=== PATIENT | female | born 1955 | race Caucasian/White ===

== ENCOUNTER 2018-08-17 10:20 | Inpatient (IN) ==
[2018-08-17] MEDS ORDERED: NS 1,000 ML IV PRN (10:24)
--- NOTE | 2018-08-17 11:01 | Diag Imaging Result Doc PS360 ---
EXAM: CT HEAD W/O CONTRAST HISTORY: cva TECHNIQUE: CT head without contrast COMPARISON: None. FINDINGS: No parenchymal hemorrhage. No epidural or subdural hematoma. No subarachnoid hemorrhage. No mass identified on this noncontrasted exam. No hydrocephalus. No sinus opacification. IMPRESSION: No hemorrhage. Negative brain CT without contrast. This exam was performed using automated exposure control, adjustment of mA or kV according to patient size, and/or use of iterative reconstruction technique. Electronically signed by Jim Boucher 08/17/2018 10:59 AM
--- NOTE | 2018-08-17 11:04 | Diag Imaging Result Doc PS360 ---
EXAM: CHEST-PORTABLE HISTORY: cva TECHNIQUE: Portable chest single view COMPARISON: None. FINDINGS: Poor inspiratory effort. The heart is not enlarged. The vessels are not distended. There are no infiltrates. No effusion identified. IMPRESSION: Negative exam. Electronically signed by Jim Boucher 08/17/2018 11:02 AM
[2018-08-17 11:25] LABS: BASO# 0.03 X1000 (0.0-0.2); BASO% 0.5 % (0.0-0.8); EOS# 0.21 X1000 (0.0-0.7); EOS% 3.7 % (0.0-10.0); HEMATOCRIT 40.2 % (37.0-47.0); HEMOGLOBIN 13.7 g/dL (12.0-16.0); LYMPH# 2.28 X1000 (1.2-3.4); LYMPH% 40.6 % (20.5-51.1); MCH 30.6 PG (27-31); MCHC 34.1 g/dL (33-37); MCV 89.9 FL (81-99); MONO# 0.56 X1000 (0.11-0.59); NEUT# 2.53 X1000 (1.4-6.5); NEUT% 45.2 % (42.2-75.2); PLT 283 X1000 (130-400); RBC 4.47 XMIL (4.2-5.4); RDW 12.5 % (11.5-14.5); WBC 5.61 X1000 (4.8-10.8)
[2018-08-17 11:40] LABS: INR 0.94; PROTIME 13.1 Seconds (11.0-16.0)
[2018-08-17 11:41] LABS: PTT 21.4 Seconds (22.3-41.8)
[2018-08-17 12:10] LABS: UR AMPHETAMINES QUAL NONE DETECTED (NONE DETECT); UR BARBITUATES QUAL NONE DETECTED (NONE DETECT); UR BENZODIAZEPIN QUAL NONE DETECTED (NONE DETECT); UR CANNABINOIDS QUAL NONE DETECTED (NONE DETECT); UR COCAINE QUAL NONE DETECTED (NONE DETECT); UR METHADONE QUAL NONE DETECTED (NONE DETECT); UR METHAMPHETAMINE QUAL NONE DETECTED (NONE DETECT); UR OPIATES QUAL PRESUMPTIVE POSITIVE (NONE DETECT); UR OXYCODONE QUAL NONE DETECTED (NONE DETECT); UR PCP QUAL NONE DETECTED (NONE DETECT); UR PROPOXYPHENE QUAL NONE DETECTED (NONE DETECT); UR TCA QUAL NONE DETECTED (NONE DETECT)
[2018-08-17 12:18] LABS: BILIRUBIN URINE NEGATIVE (NEGATIVE); BLOOD URINE NEGATIVE (NEGATIVE); CLARITY CLEAR (CLEAR); COLOR YELLOW; GLUCOSE URINE NEGATIVE (NEGATIVE); KETONE URINE NEGATIVE (NEGATIVE); LEUKOCYTES URINE NEGATIVE (NEGATIVE); NITRITE URINE NEGATIVE (NEGATIVE); PROTEIN URINE NEGATIVE (NEGATIVE); URINE BACTERIA NEGATIVE /HFP; URINE CAST NONE SEEN /LPF; URINE CRYSTAL NONE SEEN /HPF; URINE EPITHELIAL CELLS >10 /HPF (<10); URINE RBC <10 /HPF (<10); URINE SOURCE CLEAN CATCH; URINE WBC <10 /HPF (<10); URINE YEAST NONE SEEN /HPF; UROBILINOGEN URINE NORMAL
[2018-08-17 12:24] LABS: AGAP 8; ALBUMIN 4.3 g/dL (3.5-5.0); ALKALINE PHOSPHATASE 70 U/L (32-104); BUN 16 mg/dL (8-22); CHLORIDE 105 mmol/L (98-107); COSMO 279; CREATININE 0.6 mg/dL (0.5-0.9); ESTIMATED GFR > 60; GLUCOSE 101 mg/dL (70-104); GOT 14 U/L (10-30); GPT 18 U/L (10-36); POTASSIUM 4.4 mmol/L (3.5-5.1); SODIUM 139 mmol/L (136-145); TCO2 25 mmol/L (25-35); TOTAL PROTEIN 6.6 g/dL (6.3-8.3)
--- NOTE | 2018-08-17 12:24 | EKG Report ---
Test Performed on : 08/17/2018 10:47:47 AM Test Reason : cva Blood Pressure : / mmHG Vent. Rate : 081 BPM Atrial Rate : 081 BPM P-R Int : 176 ms QRS Dur : 086 ms QT Int : 400 ms P-R-T Axes : 032 -25 062 degrees QTc Int : 464 ms Normal sinus rhythm. Normal ECG No previous ECGs available Unconfirmed Result
[2018-08-17 13:57] LABS: FREE T4 1.15 ng/dL (0.93-1.70); TSH 2.71 uIUmL (0.27-4.20)
[2018-08-17] MEDS: NS 1,000 ML IV SCH ×2 (17:59→22:14)
--- NOTE | 2018-08-17 19:45 | HISTORY AND PHYSICAL ---
PRIMARY CARE PROVIDER: Joesph Ramirez DO CHIEF COMPLAINT: Right-sided weakness and slurred speech. HISTORY OF PRESENT ILLNESS: Ms. Anita Rothman is a 62-year-old female with a medical history of obstructive sleep apnea, hypertension, hyperlipidemia, hypothyroidism, GERD and peptic ulcer disease. She states that she went to bed around midnight last night. Boyfriend at the bedside states she was normal at that time. She also claims to have gotten up around 2 a.m. and was normal when she went to go to the bathroom. Then at 9 a.m. she was having trouble sitting up, was dizzy, significantly weaker on the right, difficulties with her speech and her vision. She woke her boyfriend up. He helped her get showered, then they came here. Her initial head CT was negative. Lab work is not too out of range. She does have an elevated total bilirubin. We will get her admitted. She is having some resolving symptoms. She is almost back to her baseline according to her, and on the assessment she seems to be baseline. She is a little bit slow to respond, but she is completely oriented. It does look like there is a little bit of a right facial droop and right eyelid is a little bit lower, but other than that tongue is midline. No difficulties with swallowing. She is essentially intact. We will do routine workup. MRI will not be able to be done until Sunday, as they are out of town on the weekend. PAST MEDICAL HISTORY: 1. Obstructive sleep apnea. 2. Hypertension. 3. Hyperlipidemia. 4. Hypothyroidism. 5. GERD with peptic ulcer disease history. 6. Kidney stones. 7. Nocturnal urinary incontinence, with bladder sling. 8. Hiatal hernia. 9. Osteoarthritis. 10. Chronic back pain. PAST SURGICAL HISTORY: 1. Hysterectomy. 2. Left knee replaced in 01/2018. 3. Bladder sling. 4. Bilateral shoulders. 5. Right hand trigger finger. 6. Falling arches of both feet, with cadaver pounds and muscles lengthened. SOCIAL HISTORY: Quit smoking in 2013, but prior to that she was a 4-vubt-fft-day smoker and had been since the age of 27. She is an occasional drinker, she said maximum is maybe 12 beers in a full year. Denies any illicit drug use. She lives at home with her boyfriend. 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 FAMILY HISTORY: Mother had pulmonary emboli after being diagnosed with ovarian cancer. Father had multiple strokes but they started in his 50s. ALLERGIES: Penicillin. HOME MEDICATIONS: 1. Ibuprofen mixed with Pepcid 1 tablet p.o. twice a day. 2. [place] 1 tablet p.o. as needed. 3. Norvasc 5 mg p.o. daily. 4. Pravastatin 20 mg p.o. daily. 5. Lisinopril 20 mg p.o. daily. 6. Synthroid 25 mcg p.o. daily. 7. Vascepa 1 g p.o. twice daily. REVIEW OF SYSTEMS: Fourteen-point review of systems are complete and all are negative except those mentioned above in HPI. She states when she did have symptoms earlier that she had numbness and tingling in the right hand, but that has resolved. PHYSICAL EXAMINATION: VITAL SIGNS: Temperature 98 degrees, heart rate 76, respiratory rate 18, blood pressure 142/75, O2 saturation 99% on room air. GENERAL: Ms. Anita Rothman is a 62-year-old female. She is in no acute distress. She is able answer questions appropriately. HEENT: There might be a little bit of a right facial droop and right eyelid droop, mostly with resting face, but when she smiles it is not as obvious. Tongue is midline. Pupils are equal and reactive. Extraocular movements are intact. Mucous membranes are moist. She is atraumatic. NECK: Trachea midline. CARDIOVASCULAR: S1, S2. Regular rate and rhythm. No rubs, gallops, murmurs. No lower extremity edema. Dorsalis and radial pulses +2. Negative JVD or carotid bruits. PULMONARY: Clear to auscultate with bilateral breath sounds. No accessory muscle use or work of breathing noted. GASTROINTESTINAL: Soft, nontender, nondistended. Positive bowel sounds x4. EXTREMITIES: Moves all extremities equally. Full range of motion. NEUROLOGIC: A and O x3. Follows commands. Sensory is intact. Verbal responses are a little bit on the slow side, but clear. SKIN: Warm, dry, intact. LABORATORY DATA: White blood cells 5000, hemoglobin 13, hematocrit 40, platelet count 283,000. INR 0.94, PTT is 21.4. Sodium 139, potassium 4.4, BUN 16, creatinine 0.6, glucose 101, calcium 9.0. Bilirubin is 1.40, AST 14, ALT 18. Troponin less than 0.01. Albumin 4.3. TSH 2.71, free T4 is 1.15. Urinalysis negative. Urine drug screen positive for opiates. DIAGNOSTIC DATA: Chest x-ray: Negative exam. Head CT: Negative exam. EKG: Normal sinus rhythm, rate 81, QTc is 464. ASSESSMENT AND PLAN: 1. Transient ischemic attack versus cerebrovascular accident. Given symptoms resolving so quickly, it is appearing to be more of a transient ischemic attack. Apparently she used to take some aspirin when she had her right knee replaced in January. She only took 2 months' worth. She is currently on full-dose aspirin. May consider doing dual therapy, aspirin and Plavix. Her initial head CT was negative. Brain MRI and MRA will be done on Sunday. She has an echocardiogram and carotid ultrasound ordered. We will continue her on statin. 2. Hyperlipidemia. Continue statin. 3. Gastroesophageal reflux disease. We will start on Prilosec because she has history of peptic ulcer disease as well and she is getting started on aspirin. 4. Hypothyroidism. Continue Synthroid. 5. Osteoarthritis with chronic back pain. She will be on [place] 10. Dictated by JESSE Strong for Al Arnett MD cc: JESSE Strong MD
[2018-08-17] MEDS ORDERED: PRAVACHOL PO SCH (21:00)
[2018-08-17] MEDS: NORCO-10 PO PRN (22:11)
[2018-08-17] MEDS: NON-FORMULARY MED PO SCH (22:13)
[2018-08-18 06:17] LABS: BASO# 0.03 X1000 (0.0-0.2); BASO% 0.6 % (0.0-0.8); EOS# 0.21 X1000 (0.0-0.7); HEMATOCRIT 37.6 % (37.0-47.0); HEMOGLOBIN 12.4 g/dL (12.0-16.0); LYMPH# 2.53 X1000 (1.2-3.4); LYMPH% 47.6 % (20.5-51.1); MCH 30.1 PG (27-31); MCV 91.3 FL (81-99); MONO# 0.52 X1000 (0.11-0.59); MONO% 9.8 % (1.7-9.3); MPV 10.7 FL (7.4-10.4); NEUT# 2.02 X1000 (1.4-6.5); PLT 246 X1000 (130-400); RBC 4.12 XMIL (4.2-5.4); RDW 12.2 % (11.5-14.5); WBC 5.31 X1000 (4.8-10.8)
[2018-08-18] MEDS: SYNTHROID PO SCH (06:20)
[2018-08-18] MEDS: PRILOSEC PO SCH (06:20)
[2018-08-18] MEDS: NS 1,000 ML IV SCH ×5 (06:20→21:17)
[2018-08-18 06:29] LABS: HEMOGLOBIN A1C 5.3 % (4.8-6.0)
[2018-08-18 06:36] LABS: AGAP 7; ALBUMIN 3.5 g/dL (3.5-5.0); ALKALINE PHOSPHATASE 60 U/L (32-104); BUN 13 mg/dL (8-22); CALCIUM 8.3 mg/dL (8.8-10.2); CHLORIDE 110 mmol/L (98-107); COSMO 284; CREATININE 0.6 mg/dL (0.5-0.9); ESTIMATED GFR > 60; GLUCOSE 105 mg/dL (70-104); GOT 13 U/L (10-30); GPT 16 U/L (10-36); POTASSIUM 4.1 mmol/L (3.5-5.1); SODIUM 142 mmol/L (136-145); TCO2 25 mmol/L (25-35)
--- NOTE | 2018-08-18 07:38 | Extremity Venous Study ---
EXAM: Carotid Ultrasound - 08/17/2018 HISTORY: cva TECHNIQUE: Carotid flow studies COMPARISON: None. FINDINGS: There is atherosclerotic plaquing of the proximal internal carotid on the right. Maximal systolic velocity at the right internal carotid is 60 cm/s, and maximum diastolic velocity is 25 cm/s. The right internal to common carotid systolic velocity ratio is 0.75. The flow velocities and ratio are consistent with 0-39% stenosis at the right parotid. The right vertebral demonstrates antegrade flow. There is no substantial atherosclerotic plaque identified in the left carotid system. Maximum systolic velocity at the left internal carotid is 82 cm/s, maximum diastolic velocity is 25 cm/s. The left internal to common carotid systolic velocity ratio is 0.92. The flow velocities and ratio are consistent with 0-39% stenosis at the left internal carotid. The left vertebral demonstrates antegrade flow. IMPRESSION: Atherosclerotic plaquing at proximal right internal carotid. 0-39% stenosis at right internal carotid. No substantial atherosclerotic plaquing identified in the left carotid system. 0-39% stenosis at left internal carotid. Electronically signed by Xavier Joseph 08/18/2018 7:36 AM
[2018-08-18] MEDS: ASPIRIN PO SCH (08:44)
[2018-08-18] MEDS: NON-FORMULARY MED PO SCH ×2 (08:45→21:15)
--- NOTE | 2018-08-18 16:33 | PROGRESS NOTE ---
DATE: 08/18/2018 She has completely improved today. SUBJECTIVE: No complaints. OBJECTIVE: Blood pressure 157/77, heart rate 77, respiratory rate 18, temperature 97.7 degrees.Cardiovascular: Regular rate and rhythm. Pulmonary: Bilateral breath sounds clear to auscultation. GI: Was soft, nontender, nondistended. Bowel sounds are positive. Extremities: No clubbing or cyanosis. Lymphatic: No peripheral edema. Neurological: Nonfocal. LABORATORY DATA: White count is 5, hemoglobin and hematocrit 12 and 37, platelets 246,000. Basic was normal. LDL was 104. Her carotid is negative. I do not think her echocardiogram has been, no it has been completed just not read, no cancelled. Will refer tomorrow. In any case patient is stable, her exam is nonfocal. Transient ischemic attack versus cerebrovascular accident, she is improved. She is still concerned about possible stroke. Her father had a stroke in his 50s so we are going to observe her and get MRI tomorrow and follow, also pursue echocardiogram, probably stop fluids at this point and monitor closely. DISPOSITION: Anticipate if MRI is negative definitely can go home, if it is positive she is already on appropriate therapy. We have initiated aspirin and we will continue that for the time being unless there is other testing. She is on Pravachol. I think I may increase it just to the 40 mg dose just for encourage control. Anticipate discharge tomorrow if stable. cc: Al Arnett MD
[2018-08-18] MEDS: PRAVACHOL PO SCH (21:15)
[2018-08-18] MEDS: NORCO-10 PO PRN (21:19)
[2018-08-19] MEDS: PRILOSEC PO SCH (06:26)
[2018-08-19] MEDS: SYNTHROID PO SCH (06:26)
[2018-08-19] MEDS: ASPIRIN PO SCH (09:16)
[2018-08-19] MEDS: NON-FORMULARY MED PO SCH ×2 (09:17→21:24)
[2018-08-19] MEDS: NORCO-10 PO PRN ×2 (09:28→21:24)
--- NOTE | 2018-08-19 10:36 | Diag Imaging Result Doc PS360 ---
MRA BRAIN W/O CONTRAST - 08/19/2018 INDICATION: cva TECHNIQUE: Noncontrast [id number] technique was used COMPARISON: None FINDINGS: The intracranial vessels are all normal. There is no aneurysm or stenosis. IMPRESSION: Negative exam. Electronically signed by Trent Durham 08/19/2018 10:34 AM
--- NOTE | 2018-08-19 10:46 | Diag Imaging Result Doc PS360 ---
MRI BRAIN W/WO CONTRAST - 08/19/2018 INDICATION: cva COMPARISON: Head CT 08/17/2018 FINDINGS: There is a relatively large area of focal diffusion at the anterior nucleus of the left thalamus. No other areas of restricted diffusion. There is some mild chronic microvascular disease in the kisha and in the periventricular cerebral white matter. At the left side of the kisha, there is a faint area of indeterminate abnormal signal. This is present mainly on the postcontrast image. This may represent a venous angioma/developmental venous anomaly. IMPRESSION: 1. Recent infarction at the anterior nucleus of the left thalamus. 2. 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 Consider follow-up brain MRI without and with intravenous contrast in about 3-6 months. Electronically signed by Trent Durham 08/19/2018 10:44 AM
[2018-08-19] MEDS: PRAVACHOL PO SCH (21:25)
--- NOTE | 2018-08-20 05:11 | PROGRESS NOTE ---
DATE: 08/19/2018 SUBJECTIVE: Patient notes that her initial neurologic symptoms have improved although she seems to be having some trouble with her speech. Patient states she seems to be having trouble finding her words. OBJECTIVE: Vital Signs: Temperature 98, pulse 73, respiratory 18, and BP 107/78. General: Patient is awake. She is pleasant. She is in no distress. Her speech is regular. She does not appear to be slurred. She is slow to answer but answers appropriately. HEENT: Normocephalic. Neck: Supple. Cardiovascular: Regular rate. Chest: Clear and nonlabored. Abdomen: Soft and nondistended. Extremities: Moves all extremities. She has no edema. Neurologic: Currently, the patient appears to have no focal neurologic changes although she does have some mild delay in responses, but appears to be appropriate. ASSESSMENT: Acute CVA. We will continue to follow. MRI currently is pending. Further orders as needed. cc: Hever Friend MD
[2018-08-20] MEDS: PRILOSEC PO SCH (06:08)
[2018-08-20] MEDS: SYNTHROID PO SCH (06:08)
[2018-08-20 08:06] VITALS: BP 146/82
[2018-08-20] MEDS: NON-FORMULARY MED PO SCH (09:03)
[2018-08-20] MEDS: ASPIRIN PO SCH (09:03)
--- NOTE | 2018-08-20 15:19 | ECHO REPORT ---
ORDER DATE: 08/17/2018 ECHOCARDIOGRAPHIC MEASUREMENTS: 1. Septal thickness 0.8. 2. Left ventricular internal diameter diastole 3.9. 3. Posterior wall thickness 0.8. 4. Left ventricular internal diameter in systole 2.4. 5. Aortic root 3.1. 6. Left atrium 3.4. SUMMARY: 1. Technically difficult study. Intravenous echocontrast agent Optison utilized to enhance endocardial definition. 2. Aortic valve is not well imaged but is probably trileaflet and demonstrates mild to moderate sclerotic change particularly of noncardiac cusp with adequate opening suggested on 2- dimensional images. Peak gradient across the aortic valve is 11 mmHg. Mitral, tricuspid, and pulmonic valves are without evidence of structural abnormality with trace mitral regurgitation and mild tricuspid regurgitation. Estimated systolic PA pressure by Doppler is 26 mmHg. The aortic root is normal in size. There is mild dilatation of proximal ascending aorta. 3. Normal left ventricular dimensions demonstrated. Estimated left ventricular ejection fraction appears to be at least 70%. No regional wall motion abnormalities are evident. Doppler suggests grade 1 left venticular diastolic dysfunction. Left atrium is borderline enlarged. Right atrium and right ventricle are normal in size with normal right ventricular systolic function. 4. No pericardial effusion. 5. Appearance of inferior vena cava suggests mild elevation in central venous pressure. CONCLUSIONS: 1. Technically difficult study. 2. Mild aortic valve sclerosis without stenosis. 3. Mild tricuspid regurgitation with estimated systolic PA pressure 26 mmHg. 4. Normal left ventricular systolic function without wall motion abnormality evident. 5. Grade 1 left ventricular diastolic dysfunction suggested. 5. Mild elevation in central venous pressure suggested. cc: MD Susan Means CRNP MTDD
--- NOTE | 2018-08-21 04:40 | DISCHARGE SUMMARY ---
ADMISSION DATE: 08/17/2018 DISCHARGE DATE: 08/20/2018 DIAGNOSES: 1. Acute cerebrovascular accident at the anterior nucleus of the left thalamus. 2. 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 Consider followup brain MRI without and with IV contrast in 3 to 6 months per radiology read. 3. Hyperlipidemia. 4. Gastroesophageal reflux disease. 5. Hypothyroid. 6. Osteoarthritis. DIAGNOSTICS: 1. CT of the head revealed negative exam. No hemorrhage. 2. Bilateral carotid Doppler revealed atherosclerotic plaquing at the proximal right internal carotid, 0 to 39% stenosis at the right internal carotid. No substantial atherosclerotic plaquing identified in the left carotid system. 0 to 39% stenosis at the left internal carotid. 3. Echocardiogram revealed technically difficult study. Mild aortic valve sclerosis without stenosis. Normal left ventricular systolic function without wall motion abnormality. Grade 1 left ventricular diastolic dysfunction. 4. Brain MRA revealed negative exam. Intracranial vessels are all normal. There is no aneurysm or stenosis. 5. Brain MRI with recent infarct at the anterior nucleus of the left thalamus, indeterminate enhancing area at the left side of the kisha, likely developmental versus anomaly. Consider followup brain MRI with and without contrast in about 3 to 6 months. HOSPITAL COURSE: Ms. Rothman presented to the emergency room complaining of right-sided weakness and slurred speech. On arrival to the emergency room she had just a bit of a right facial droop and right eyelid seemed to be a little bit lower than the left. Otherwise she was back to her baseline. MRI with and without contrast revealed a recent infarct at the anterior nucleus of the left thalamus. The read also showed an indeterminate enhancing area at the left side of the kisha. It was likely developmental anomaly with the recommendation per radiology to follow up an IV with and without contrast MRI in about 3 to 6 months. Thankfully today she does have episodes of finding her words. Otherwise she is back to baseline and, thankfully she is ready for discharge. DISCHARGE PHYSICAL EXAMINATION: Discharge Vital Signs: Blood pressure is 146/82 with a heart rate of 75, respirations 18, temperature 97.5 degrees oral with room air saturations 97%. Cardiovascular: Regular rate and rhythm. S1 and S2 are appreciated. She has no lower extremity edema. Peripheral pulses are palpable x4 extremities and calves are not tender to palpation. Pulmonary: Breath sounds clear with no increased work of breathing noted. Chest rises and falls symmetric with respiration. Gastrointestinal: Abdomen is soft, nontender, nondistended with bowel sounds in all 4 quadrants. Neurologic: She is alert. She is oriented forehead is spared. She has no facial drooping. Equal nasal flaring. No tongue or uvula deviation. Equal shoulder shrug. She has 5/5 muscle strength x4 extremities. [employer] are equal and strong. She does have an occasional delay in responses, otherwise she has no slurred speech and she is able to answer questions and carry on a conversation. DISCHARGE MEDICATIONS: 1. Norvasc 5 mg p.o. daily. 2. Aspirin 325 p.o. daily. 3. Duexis 1 tablet b.i.d. 4. Pierron 10/325, 1 tablet p.r.n. as directed. 5. Vascepa 1 p.o. b.i.d. 6. Synthroid 25 mcg p.o. daily. 7. Lisinopril 20 mg p.o. daily. 8. Pravachol 40 mg p.o. daily. FOLLOWUP: 1. Her primary care physician, Dr. Ramirez. She needs to call Sunday to schedule an appointment. 2. She is to have a repeat MRI of the brain with and without contrast in approximately 3 to 6 months to evaluate indeterminate enhancing area at the left side of the kisha. This can be evaluated by her primary care physician, Dr. Ramirez. 3. She is being discharged home in stable condition with family members. 4. She has been instructed to call to be seen sooner or return to the ER for any syncope, dizziness, chest pain, palpitations, shortness of breath, cough, any fevers or chills, any nausea, vomiting, diarrhea, constipation, black or bloody vomitus or stools, for any change in vision, hearing, speech, any facial drooping, difficulty swallowing, any weakness or change in sensation to extremities, any difficulty walking or for any questions or concerns that she may have. Dictated by JESSE Spaulding for Hever Friend MD cc: JESSE Spaulding MD [facility],
--- NOTE | 2018-08-21 08:32 | DISCHARGE SUMMARY ---
ADMISSION DATE: 08/17/2018 DISCHARGE DATE: 08/20/2018 ADDENDUM: Patient seen and examined by myself; full note dictated and discussed with nurse practitioner. On discharge, patient is awake, alert. Her speech appears normal. She is able to find her words, although does have some episodes of being sluggish. Discussed with patient that she has had a left thalamic stroke and certainly needs to go back to work over the next few days. Continue to rest and relax. Discussed she does need to decrease her stress. Hopefully, she will comply. Thankfully, all of her symptoms appear to be improved. Did discuss her if she wants to follow up outpatient with Neurology, needs to continue cholesterol management. Please see full note. cc: Hever Friend MD
== END 2018-08-20 10:42 | disposition home or self-care (01) | DRG 65 ==
LOC: P.ED 10:20 → P.MEDSURG 10:20 → OBSVTOIN 10:21 → SUATTDRO 10:21
PROVIDERS: ATTEND Family Medicine
CPT/HCPCS: 70450; 70544; 70553; 71010; 71045; 80053; 80061; 80104; 80301; 80305; 81001; 83036; 83721; 84439; 84443; 84484; 85025; 85610; 85730; 93005; 93306; 93880; 94761; 97163; 99285; A9270; A9579; C8929; G0431; G0434; G0477; J7030; Q9957